=== PATIENT | female | born 1995 | race Two or more races ===

== ENCOUNTER 2024-12-25 12:03 | Inpatient (IN) | payer OTHER ==
[~2024-12-25] VITALS: Ht 167.6 cm; Wt 69.9 kg
[2025-01-08 05:37] VITALS: BP 121/68
[2025-01-08] MEDS ORDERED: RINGERS SOLUTION,LACTATED 1,000 ML IV SCH (06:00)
[2025-01-08] MEDS ORDERED: PRENATA CHEWAB1 EACH PO (06:08)
[2025-01-08] MEDS ORDERED: PEPCID AC10 MG PO (06:09)
[2025-01-08 06:10] LABS: PH,URINE 6.5 (5.0-8.0); URINE APPEARANCE Clear; URINE BILIRRUBIN Negative (NEGATIVE); URINE BLOOD Negative; URINE COLOR Yellow; URINE GLUCOSE Negative (NEGATIVE); URINE KETONE Negative (NEGATIVE); URINE LEUKOCYTE Small; URINE NITRATE Negative; URINE PROTEIN Negative (NEGATIVE); URINE UROBILINOGEN 0.2 E.U./dl
[2025-01-08 06:13] LABS: URINE BACTERIA 1249.5 uL (0.0-1933); URINE EPITHELIAL CELLS 63.9 uL (0.0-38.8); URINE WBC 56.5 uL (0.0-23.2)
[2025-01-08] MEDS ORDERED: OXYTOCIN 500 ML IV SCH (06:30)
[2025-01-08 06:34] LABS: HEMATOCRIT 33.2 % (36.0-45.00); HEMOGLOBIN 11.2 g/dL (12.0-15.00); MEAN CELL VOLUME 87.2 fL (80.00-100.00); MEAN CORPUSCULAR HEMOGLOBIN 29.5 pg (27.00-32.0); MEAN CORPUSCULAR HGB CONC 33.8 g/dl (32.0-36.0); PLATELET COUNT 196 K/uL (150-450); RED BLOOD COUNT 3.81 M/uL (4.00-6.00); RED CELL DISTRIBUTION WIDTH 13.3 % (11.5-14.5)
[2025-01-08 06:43] LABS: URINE CAST 0.14 uL (0.0-1.40); URINE RBC 1.6 uL (0.0-20.8)
[2025-01-08 06:59] LABS: INR 0.94; PARTIAL THROMBOPLASTIN TIME 24.6 SECONDS (22.0-34.0); PROTHROMBIN TIME 10.3 SECONDS (9.0-11.5)
[2025-01-08 07:07] LABS: ALBUMIN 2.7 gm/dL (3.4-5.0); BILIRUBIN TOTAL 0.28 mg/dL (0.3-1.2); CALCIUM 8.6 mg/dL (8.5-10.1); CREATININE SERUM 0.56 mg/dL (0.55-1.02); GFR 128.9; GLOBULINA 4.2 G/DL (2.4-3.5); POTASSIUM 3.94 mEq/L (3.5-5.1); TOTAL PROTEIN 6.9 gm/dL (6.4-8.2)
[2025-01-08 07:16] VITALS: BP 115/73
[2025-01-08 11:30] VITALS: BP 115/67
[2025-01-08] MEDS ORDERED: LIDOCAINE HCL 1% 10ML VIAL ONE (14:40)
[2025-01-08] MEDS ORDERED: CHLORHEXIDINE GLUCONATE 120 ML BOTTLE TOP ONE ×2 (14:40→15:15)
[2025-01-08] MEDS ORDERED: ERYTHROMYCIN BASE OPHT 1GM EACH TUBE OP ONE ×2 (14:40→15:15)
[2025-01-08] MEDS ORDERED: OXYTOCIN 20 UNITS/1000ML RL PIGGYBAG IV ONE ×2 (14:40→15:15)
[2025-01-08 15:02] VITALS: BP 124/55
[2025-01-08 15:06] VITALS: BP 123/68
[2025-01-08] MEDS ORDERED: ACETAMINOPHEN 325 MG TABLET PO PRN (15:15)
[2025-01-08] MEDS ORDERED: IBUprofen 800 MG TABLET PO PRN (15:15)
[2025-01-08] MEDS ORDERED: HYDROCORTISONE 2.5% 30 GM TUBE RECTAL SCH (17:00)
[2025-01-08] MEDS ORDERED: BENZOCAINE/MENTHOL 90 ML BOTTLE TOP SCH (17:00)
[2025-01-08 18:56] VITALS: BP 120/72
[2025-01-09 00:16] VITALS: BP 125/69
[2025-01-09 00:58] LABS: HEMATOCRIT 31.4 % (36.0-45.00); HEMOGLOBIN 10.7 g/dL (12.0-15.00); MEAN CELL VOLUME 86.9 fL (80.00-100.00); MEAN CORPUSCULAR HEMOGLOBIN 29.7 pg (27.00-32.0); MEAN CORPUSCULAR HGB CONC 34.2 g/dl (32.0-36.0); PLATELET COUNT 192 K/uL (150-450); RED BLOOD COUNT 3.62 M/uL (4.00-6.00); RED CELL DISTRIBUTION WIDTH 13.3 % (11.5-14.5)
[2025-01-09 08:00] VITALS: BP 124/80
[2025-01-09] MEDS ORDERED: CEFAZOLIN SODIUM 1,000 MG VIAL ONE (11:58)
[2025-01-09 14:20] VITALS: BP 108/64
[2025-01-09 16:44] VITALS: BP 116/72
[2025-01-10 00:07] VITALS: BP 94/64
[2025-01-10 09:02] VITALS: BP 111/67
== END 2025-01-10 10:11 | disposition home or self-care (01) | DRG 798 ==
LOC: LDR 01-08 05:23 → OB/GYN 01-08 05:23 → LDR 01-16 12:02
PROVIDERS: ADMIT Specialist; ATTEND Specialist
PROC: 10E0XZZ Delivery of Products of Conception, External Approach (ICD-10-PCS; principal; 2025-01-08)
PROC: 4A1HXCZ Monitoring of Products of Conception, Cardiac Rate, External Approach (ICD-10-PCS; 2025-01-08)
PROC: 3E033VJ Introduction of Other Hormone into Peripheral Vein, Percutaneous Approach (ICD-10-PCS; 2025-01-08)
PROC: 0UB70ZZ Excision of Bilateral Fallopian Tubes, Open Approach (ICD-10-PCS; 2025-01-09)
DX: O80 Encounter for full-term uncomplicated delivery (principal); Z37.0 Single live birth; Z3A.39 39 weeks gestation of pregnancy; Z30.2 Encounter for sterilization